=== PATIENT | female | born 2000 | race Two or more races ===

== ENCOUNTER 2024-04-25 15:51 | Emergency (ER) | payer OTHER ==
[~2024-04-25] VITALS: Ht 182.9 cm; Wt 79.8 kg
[~2024-04-25 15:51] MED LIST: TYLENOL100 MG/M1 PO
[2024-04-25 16:04] VITALS: BP 115/72; O2SAT 99
== END 2024-04-25 18:07 | disposition home or self-care (01) ==
LOC: ER 15:53
DX: B35.1 Tinea unguium (principal)